=== PATIENT | male | born 1955 | race Two or more races ===

== ENCOUNTER 2021-08-16 11:52 | Inpatient (IN) | payer BC, OTHER ==
[~2021-08-16] VITALS: Ht 170.2 cm; Wt 85.3 kg
[2021-08-16 13:39] LABS: Basophils # (auto) 0.1 10 ^3/uL (0-0.2); Eosinophils # (auto) 0 10 ^3/uL (0-0.8); Monocytes # (auto) 0.5 10 ^3/uL (0-1.3); Neutrophils # (auto) 6.4 10 ^3/uL (1.6-8.6); Nucleated Red Blood Cells % 0.1 %
[2021-08-16 13:43] LABS: Basophils % (auto) 0.6 % (0.0-2.0); Eosinophils % (auto) 0.3 % (0.0-7.0); Hematocrit 20.3 % (41.0-53.0); Lymphocytes # (auto) 1.3 10 ^3/uL (0.4-5.4); Lymphocytes % (auto) 16.3 % (10.0-50.0); Mean Corpuscular Hemoglobin 17.5 pg (28.0-32.0); Mean Corpuscular Hgb Conc. 29.2 g/dL (32.0-36.0); Monocytes % (auto) 5.6 % (0.0-12.0); Neutrophils % (auto) 77.2 % (37.0-80.0); Red Blood Cells 3.38 10^6/uL (4.5-5.90); Red Cell Distribution Width 18.9 % (11.8-14.3); White Blood Cell 8.3 10^3/uL (4.4-10.8)
[2021-08-16 13:56] LABS: INR 1.1 (0.9-1.15); Partial Thromboplastin Time 24.8 sec (23.6-33.0)
[2021-08-16 13:58] LABS: Hemoglobin 5.9 g/dL (13.5-17.5)
[2021-08-16 14:02] LABS: Albumin 2.7 g/dL (3.4-5.0); Calcium 8.4 mg/dL (8.5-10.1); Potassium 3.6 mmol/L (3.5-5.1)
[2021-08-16 14:06] LABS: BUN/Creatinine Ratio 11.3; Bilirubin, Total 0.2 mg/dL (0.2-1.0); Total Protein 6.5 g/dL (6.4-8.2)
[2021-08-16 14:10] LABS: Urine Bacteria MOD /hpf (None Seen); Urine Blood Negative /uL (Negative); Urine Mucus FEW (None Seen); Urine Specific Gravity 1.019 (1.001-1.035); Urine WBC 88 /hpf (0 - 3)
[2021-08-16 16:25] VITALS: BP 120/55
[2021-08-16] MEDS ORDERED: NITROGLYCERIN 0.4 MG SL TAB SL PRN (16:30)
[2021-08-16] MEDS ORDERED: HYDROcodone-ACET 5/325MG TAB PO PRN (16:30)
[2021-08-16] MEDS ORDERED: MORPHINE SULFATE INJ 2 MG/ml SYRG IV PRN ×2 (16:30)
[2021-08-16] MEDS ORDERED: ONDANSETRON HCL 4 MG/2 ML VIAL IV PRN (16:30)
[2021-08-16 16:45] VITALS: BP 129/61
[2021-08-16 18:40] VITALS: BP 116/54
[2021-08-16 20:01] VITALS: BP 121/51
[2021-08-16 20:16] VITALS: BP 128/55
[2021-08-17] MEDS ORDERED: FURO40TA4 PO (01:11)
[2021-08-17] MEDS ORDERED: POTA10TA51 PO (01:11)
[2021-08-17 01:18] VITALS: BP 130/63
[2021-08-17 05:00] VITALS: BP 144/80
[2021-08-17] MEDS: ACETAMINOPHEN 325 MG TAB PO PRN ×2 (05:05→21:35)
[2021-08-17 06:00] LABS: Basophils # (auto) 0.1 10 ^3/uL (0-0.2); Basophils % (auto) 0.8 % (0.0-2.0); Hemoglobin 8.2 g/dL (13.5-17.5); Monocytes # (auto) 0.7 10 ^3/uL (0-1.3)
[2021-08-17 06:02] LABS: Eosinophils # (auto) 0.1 10 ^3/uL (0-0.8); Eosinophils % (auto) 1.6 % (0.0-7.0); Lymphocytes # (auto) 2.1 10 ^3/uL (0.4-5.4); Lymphocytes % (auto) 21.6 % (10.0-50.0); Mean Corpuscular Hemoglobin 20.5 pg (28.0-32.0); Mean Corpuscular Hgb Conc. 31.6 g/dL (32.0-36.0); Mean Corpuscular Volume 64.9 fL (80.0-100.0); Monocytes % (auto) 7.2 % (0.0-12.0); Neutrophils # (auto) 6.6 10 ^3/uL (1.6-8.6); Neutrophils % (auto) 68.8 % (37.0-80.0); Nucleated Red Blood Cells % 0.2 %; White Blood Cell 9.5 10^3/uL (4.4-10.8)
[2021-08-17 06:08] LABS: Albumin 2.7 g/dL (3.4-5.0); BUN/Creatinine Ratio 13.2; Calcium 8.7 mg/dL (8.5-10.1); Potassium 4.2 mmol/L (3.5-5.1)
[2021-08-17 06:11] LABS: Bilirubin, Total 0.2 mg/dL (0.2-1.0); Total Protein 6.3 g/dL (6.4-8.2)
[2021-08-17 06:15] LABS: Red Cell Distribution Width 23.7 % (11.8-14.3)
[2021-08-17 09:00] VITALS: BP 132/60
[2021-08-17] MEDS ORDERED: cefTRIAXone 1GM/50ML D5W 50 ML IV ONE (11:45)
[2021-08-17 13:00] VITALS: BP 123/59
[2021-08-17 17:00] VITALS: BP 134/62
[2021-08-17 22:00] VITALS: BP 123/64
[2021-08-18 05:00] VITALS: BP 113/60
[2021-08-18] MEDS: cefTRIAXone 1GM/50ML D5W 50 ML IV SCH (08:39)
[2021-08-18 09:00] VITALS: BP 129/59
[2021-08-18 12:52] LABS: Basophils # (auto) 0.1 10 ^3/uL (0-0.2); Eosinophils # (auto) 0.1 10 ^3/uL (0-0.8); Monocytes # (auto) 0.5 10 ^3/uL (0-1.3); Nucleated Red Blood Cells % 0.1 %
[2021-08-18 12:54] LABS: Basophils % (auto) 1.3 % (0.0-2.0); Eosinophils % (auto) 1.6 % (0.0-7.0); Hematocrit 27.4 % (41.0-53.0); Hemoglobin 8.3 g/dL (13.5-17.5); Lymphocytes # (auto) 1.6 10 ^3/uL (0.4-5.4); Mean Corpuscular Hgb Conc. 30.4 g/dL (32.0-36.0); Mean Corpuscular Volume 65.8 fL (80.0-100.0); Monocytes % (auto) 6.8 % (0.0-12.0); Neutrophils # (auto) 5.4 10 ^3/uL (1.6-8.6); Neutrophils % (auto) 69.3 % (37.0-80.0); Red Blood Cells 4.16 10^6/uL (4.5-5.90); White Blood Cell 7.8 10^3/uL (4.4-10.8)
[2021-08-18 12:57] LABS: Red Cell Distribution Width 24.1 % (11.8-14.3)
[2021-08-18 13:00] VITALS: BP 125/61
[2021-08-18 17:00] VITALS: BP 135/78
[2021-08-18 20:00] VITALS: BP 133/81
[2021-08-18 22:00] VITALS: BP 133/81
[2021-08-19 05:00] VITALS: BP 113/57
[2021-08-19 08:00] VITALS: BP 124/69
[2021-08-19 08:50] VITALS: BP 122/61
[2021-08-19] MEDS: cefTRIAXone 1GM/50ML D5W 50 ML IV SCH (09:04)
[2021-08-19 12:08] LABS: Basophils # (auto) 0.1 10 ^3/uL (0-0.2); Basophils % (auto) 1.4 % (0.0-2.0); Eosinophils # (auto) 0.1 10 ^3/uL (0-0.8); Hemoglobin 8.8 g/dL (13.5-17.5); Monocytes # (auto) 0.5 10 ^3/uL (0-1.3); Nucleated Red Blood Cells % 0.1 %
[2021-08-19 12:12] LABS: Eosinophils % (auto) 1.4 % (0.0-7.0); Hematocrit 28.9 % (41.0-53.0); Lymphocytes # (auto) 1.4 10 ^3/uL (0.4-5.4); Lymphocytes % (auto) 16.9 % (10.0-50.0); Mean Corpuscular Hemoglobin 19.8 pg (28.0-32.0); Mean Corpuscular Hgb Conc. 30.4 g/dL (32.0-36.0); Mean Corpuscular Volume 65.1 fL (80.0-100.0); Neutrophils # (auto) 6.3 10 ^3/uL (1.6-8.6); Neutrophils % (auto) 74.3 % (37.0-80.0); Red Blood Cells 4.45 10^6/uL (4.5-5.90); White Blood Cell 8.4 10^3/uL (4.4-10.8)
[2021-08-19 12:26] LABS: BUN/Creatinine Ratio 17.2; Calcium 8.5 mg/dL (8.5-10.1); Potassium 4.1 mmol/L (3.5-5.1)
[2021-08-19 13:04] VITALS: BP 124/69
[2021-08-19 16:34] VITALS: BP 131/61
[2021-08-19 22:00] VITALS: BP 127/74
[2021-08-20 05:00] VITALS: BP 119/64
[2021-08-20] MEDS: ACETAMINOPHEN 325 MG TAB PO PRN (06:23)
[2021-08-20 06:29] LABS: Basophils # (auto) 0.1 10 ^3/uL (0-0.2); Mean Corpuscular Volume 65.1 fL (80.0-100.0)
[2021-08-20 06:32] LABS: Basophils % (auto) 1.1 % (0.0-2.0); Eosinophils # (auto) 0.2 10 ^3/uL (0-0.8); Hematocrit 28.2 % (41.0-53.0); Hemoglobin 8.7 g/dL (13.5-17.5); Lymphocytes # (auto) 1.7 10 ^3/uL (0.4-5.4); Lymphocytes % (auto) 18.8 % (10.0-50.0); Mean Corpuscular Hemoglobin 20.1 pg (28.0-32.0); Mean Corpuscular Hgb Conc. 30.8 g/dL (32.0-36.0); Monocytes # (auto) 0.6 10 ^3/uL (0-1.3); Monocytes % (auto) 6.8 % (0.0-12.0); Neutrophils # (auto) 6.4 10 ^3/uL (1.6-8.6); Neutrophils % (auto) 71.3 % (37.0-80.0); Red Blood Cells 4.33 10^6/uL (4.5-5.90)
[2021-08-20 06:34] LABS: Red Cell Distribution Width 24.8 % (11.8-14.3)
[2021-08-20 06:47] LABS: Potassium 4.1 mmol/L (3.5-5.1)
[2021-08-20 06:53] LABS: Albumin 2.9 g/dL (3.4-5.0); BUN/Creatinine Ratio 15.1; Bilirubin, Total 0.2 mg/dL (0.2-1.0); CRP High Sensitivity 0.37 mg/dL (< 0.3); Calcium 8.6 mg/dL (8.5-10.1); Pre Albumin 27.2 mg/dL (20.0-40.0); Total Protein 6.8 g/dL (6.4-8.2)
[2021-08-20 06:55] LABS: % Iron Saturation 3.2 % (20-55)
[2021-08-20 06:58] LABS: Thyroid Stimulating Hormone 3.09 uIU/mL (0.358-3.74)
[2021-08-20 09:00] VITALS: BP 138/67
[2021-08-20] MEDS ORDERED: GOLYTELY 4L KIT PO ONE (09:00)
[2021-08-20] MEDS: cefTRIAXone 1GM/50ML D5W 50 ML IV SCH (09:10)
[2021-08-20 09:11] LABS: Ferritin 4.1 ng/mL (10-322)
[2021-08-20 13:00] VITALS: BP 131/74
[2021-08-20 16:57] VITALS: BP 149/75
[2021-08-20 22:00] VITALS: BP 112/62
[2021-08-21 05:00] VITALS: BP 137/60
[2021-08-21 08:30] VITALS: BP 134/69
[2021-08-21] MEDS: cefTRIAXone 1GM/50ML D5W 50 ML IV SCH (08:43)
[2021-08-21 09:04] LABS: Free T4 (Free Thyroxine) 1.24 ng/dL (0.89-1.76)
[2021-08-21 09:17] VITALS: BP 134/69
[2021-08-21 09:59] LABS: Folate (Folic Acid) 12.56 ng/mL (5.38-24)
[2021-08-21 10:24] LABS: Basophils # (auto) 0.1 10 ^3/uL (0-0.2); Eosinophils # (auto) 0.1 10 ^3/uL (0-0.8); Lymphocytes # (auto) 1.8 10 ^3/uL (0.4-5.4); Monocytes # (auto) 0.6 10 ^3/uL (0-1.3); Neutrophils % (auto) 70.8 % (37.0-80.0)
[2021-08-21 10:26] LABS: Eosinophils % (auto) 1.1 % (0.0-7.0); Hematocrit 25.1 % (41.0-53.0); Hemoglobin 7.8 g/dL (13.5-17.5); Lymphocytes % (auto) 20.1 % (10.0-50.0); Mean Corpuscular Hemoglobin 19.9 pg (28.0-32.0); Mean Corpuscular Volume 64.1 fL (80.0-100.0); Neutrophils # (auto) 6.2 10 ^3/uL (1.6-8.6); Nucleated Red Blood Cells % 0.1 %; Red Blood Cells 3.92 10^6/uL (4.5-5.90); Red Cell Distribution Width 24.8 % (11.8-14.3); White Blood Cell 8.7 10^3/uL (4.4-10.8)
[2021-08-21 10:41] LABS: INR 1.08 (0.9-1.15); Partial Thromboplastin Time 24.7 sec (23.6-33.0)
[2021-08-21 10:55] LABS: Albumin 2.7 g/dL (3.4-5.0); Calcium 8.2 mg/dL (8.5-10.1); Potassium 3.3 mmol/L (3.5-5.1)
[2021-08-21 10:58] LABS: BUN/Creatinine Ratio 12.2; Bilirubin, Total 0.2 mg/dL (0.2-1.0); Total Protein 6.4 g/dL (6.4-8.2)
[2021-08-21] MEDS ORDERED: LIDOCAINE VISCOUS 2% 15ML UD ONE (12:44)
[2021-08-21] MEDS ORDERED: diphenhdrAMINE HCL 50 MG/1 ML VL ONE (12:44)
[2021-08-21 12:47] VITALS: BP 132/66
[2021-08-21] MEDS: MIDAZOLAM HCL 5 MG/ML-1ML VIAL ONE ×4 (13:44→13:57)
[2021-08-21] MEDS: fentaNYL CITRATE 100 MCG/2 ML VL ONE ×3 (13:44→13:55)
[2021-08-21] MEDS ORDERED: fentaNYL CITRATE 100 MCG/2 ML VL ONE (14:01)
[2021-08-21] MEDS ORDERED: OMNIPAQUE ORAL SOLN 500ml 12mg/ml PO ONE (15:18)
[2021-08-21] MEDS ORDERED: IOHEXOL 300 MG/ML 100ML BOTTLE IJ ONE (17:09)
[2021-08-21 17:17] VITALS: BP 123/65
[2021-08-21] MEDS ORDERED: AMINO ACID INFUSION IN D10W 1,000 ML IV NR (20:00)
[2021-08-21 22:00] VITALS: BP 119/64
[2021-08-21] MEDS: PANTOPRAZOLE 40 MG/10 ML VIAL INJ IV SCH (22:26)
[2021-08-21] MEDS: ACCU-CHEK COMFORT CURVE STRIP VI SCH (22:58)
[2021-08-21] MEDS: InsuLIN REG 1unit/0.01ml Soln (100units/ml) SC SCH (23:04)
[2021-08-22] MEDS ORDERED: DEXTROSE (50%) 50ML SYRG IV SCH
[2021-08-22] MEDS: ACETAMINOPHEN 325 MG TAB PO PRN ×2 (03:25→04:07)
[2021-08-22 05:00] VITALS: BP 120/72
[2021-08-22] MEDS: InsuLIN REG 1unit/0.01ml Soln (100units/ml) SC SCH ×2 (06:00→12:00)
[2021-08-22] MEDS: ACCU-CHEK COMFORT CURVE STRIP VI SCH ×2 (06:24→12:11)
[2021-08-22 08:16] LABS: Hematocrit 25.7 % (41.0-53.0)
[2021-08-22 08:28] LABS: Magnesium 2.4 mg/dL (1.6-2.6); Potassium 3.6 mmol/L (3.5-5.1)
[2021-08-22 08:37] LABS: Albumin 2.8 g/dL (3.4-5.0); BUN/Creatinine Ratio 9.7; Bilirubin, Total 0.2 mg/dL (0.2-1.0); Calcium 8.4 mg/dL (8.5-10.1); Phosphorus 2.8 mg/dL (2.5-4.90); Total Protein 6.4 g/dL (6.4-8.2)
[2021-08-22 09:00] VITALS: BP 127/61
[2021-08-22] MEDS ORDERED: TPN PER PHARMACY 0 ML IV SCH (09:45)
[2021-08-22] MEDS ORDERED: ASCORBIC ACID 500 MG TAB PO SCH (10:00)
[2021-08-22] MEDS ORDERED: FERROUS SULFATE 325mg EC TAB PO SCH (10:00)
[2021-08-22] MEDS ORDERED: levoFLOXacin 500 MG TAB PO SCH (10:00)
[2021-08-22] MEDS: PANTOPRAZOLE 40 MG/10 ML VIAL INJ IV SCH (10:28)
[2021-08-22 13:00] VITALS: BP 127/64
[2021-08-22] MEDS ORDERED: metroNIDAZOLE 500 MG TAB PO SCH (14:00)
[2021-08-22] MEDS ORDERED: LEVO-28 PO (15:53)
[2021-08-22] MEDS ORDERED: FER325T PO (15:53)
[2021-08-22] MEDS ORDERED: MET500T PO (15:53)
[2021-08-22] MEDS ORDERED: PANT40T PO (15:53)
[2021-08-22] MEDS ORDERED: ASCO500T11 PO (15:53)
[2021-08-22 16:48] VITALS: BP 147/70
[2021-08-22 18:22] VITALS: BP 147/70
[2021-08-22] MEDS ORDERED: PPN PER PHARMACY IV NR ×7 (20:00)
== END 2021-08-22 19:30 | disposition home or self-care (01) | DRG 812 ==
LOC: ER 11:52 → TELE 16:24 → TELE-WESTW 22:32
PROVIDERS: ADMIT Internal Medicine; ATTEND Hospitalist
PROC: 30233N1 Transfusion of Nonautologous Red Blood Cells into Peripheral Vein, Percutaneous Approach (ICD-10-PCS; principal; 2021-08-16)
PROC: 0DBE8ZX Excision of Large Intestine, Via Natural or Artificial Opening Endoscopic, Diagnostic (ICD-10-PCS; 2021-08-21)
PROC: 0DB68ZX Excision of Stomach, Via Natural or Artificial Opening Endoscopic, Diagnostic (ICD-10-PCS; 2021-08-21 13:38)
DX: D64.9 Anemia, unspecified (principal); N39.0 Urinary tract infection, site not specified; I48.20 Chronic atrial fibrillation, unspecified; K57.32 Diverticulitis of large intestine without perforation or abscess without bleeding; K29.70 Gastritis, unspecified, without bleeding; I48.0 Paroxysmal atrial fibrillation; E88.09 Other disorders of plasma-protein metabolism, not elsewhere classified; I10 Essential (primary) hypertension; Z20.822 Contact with and (suspected) exposure to COVID-19; R53.83 Other fatigue; K44.9 Diaphragmatic hernia without obstruction or gangrene; Z79.01 Long term (current) use of anticoagulants; Z82.5 Family history of asthma and other chronic lower respiratory diseases; Z83.3 Family history of diabetes mellitus; Z87.440 Personal history of urinary (tract) infections
CPT/HCPCS: 36415; 36430; 43239; 45380; 71045; 74177; 80048; 80053; 81001; 82040; 82270; 82378; 82607; 82668; 82728; 82746; 82962; 83010; 83540; 83550; 83615; 83735; 84100; 84439; 84443; 84478; 84484; 85014; 85018; 85025; 85045; 85610; 85652; 85730; 86141; 86431; 86850; 86880; 86900; 86901; 86920; 93005; 93306; C9113; G0378; J0696; J2250; J2405

== ENCOUNTER 2021-10-31 21:05 | Inpatient (IN) | payer BC ==
[~2021-10-31] VITALS: Ht 170.2 cm; Wt 76.9 kg
[~2021-10-31 21:05] MED LIST: ASCO500T11 PO; FER325T PO; FURO40TA4 PO; LEVO-28 PO; MET500T PO; PANT40T PO; POTA10TA51 PO
[2021-11-01 00:53] LABS: Red Blood Cells 5.23 10^6/uL (4.5-5.90)
[2021-11-01 00:54] LABS: Hematocrit 41.7 % (41.0-53.0); Hemoglobin 13.2 g/dL (13.5-17.5); Mean Corpuscular Hemoglobin 25.3 pg (28.0-32.0); Mean Corpuscular Hgb Conc. 31.7 g/dL (32.0-36.0); Mean Corpuscular Volume 79.8 fL (80.0-100.0); White Blood Cell 25.7 10^3/uL (4.4-10.8)
[2021-11-01 00:55] LABS: Red Cell Distribution Width 24.7 % (11.8-14.3)
[2021-11-01 00:56] LABS: Basophils % (manual) 0 (0.0-2.0); Blast Cells 0; Eosinophils % (manual) 0 (0-7); Metamyelocytes % 0; Myelocytes % 0; Promyelocytes % 0; Reactive Lymphocytes 0
[2021-11-01 01:14] LABS: Potassium 4.2 mmol/L (3.5-5.1)
[2021-11-01 01:16] LABS: BUN/Creatinine Ratio 11.6
[2021-11-01 01:19] LABS: Bilirubin, Total 0.5 mg/dL (0.2-1.0); Total Protein 7.6 g/dL (6.4-8.2)
[2021-11-01 01:34] LABS: Band Neutrophils % (manual) 2; Lymphocytes % (manual) 6 (10.0-50.0); Monocytes % (manual) 4 (0-12)
[2021-11-01] MEDS ORDERED: diazePAM 5 MG TAB PO ONE (02:30)
[2021-11-01] MEDS ORDERED: metroNIDAZOLE 500MG/100ML 100 ML IV ONE (07:15)
[2021-11-01] MEDS ORDERED: CIPROFLOXACIN HCL 500 MG TAB PO ONE (07:30)
[2021-11-01] MEDS ORDERED: SODIUM CHLORIDE 0.9% 500 ML IV ONE (07:30)
[2021-11-01] MEDS ORDERED: ONDANSETRON HCL 4 MG/2 ML VIAL IV ONE (08:45)
[2021-11-01] MEDS ORDERED: MORPHINE SULFATE INJ 2 MG/ml SYRG IV PRN (10:45)
[2021-11-01] MEDS ORDERED: NITROGLYCERIN 0.4 MG SL TAB SL PRN (10:45)
[2021-11-01] MEDS: MORPHINE SULFATE INJ 2 MG/ml SYRG IV PRN ×2 (11:10→21:03)
[2021-11-01] MEDS: ONDANSETRON HCL 4 MG/2 ML VIAL IV PRN ×2 (11:11→21:02)
[2021-11-01] MEDS: metroNIDAZOLE 500MG/100ML 100 ML IV SCH ×2 (14:10→21:26)
[2021-11-01 16:32] VITALS: BP_SYST 117; BP_SYST 120; BP_DIAS 66
[2021-11-01 16:52] VITALS: BP 121/67
[2021-11-01 20:00] VITALS: BP 114/62
[2021-11-01 22:00] VITALS: BP 114/62
[2021-11-02 05:00] VITALS: BP 122/64
[2021-11-02] MEDS: metroNIDAZOLE 500MG/100ML 100 ML IV SCH ×3 (05:35→21:29)
[2021-11-02] MEDS: MORPHINE SULFATE INJ 2 MG/ml SYRG IV PRN ×3 (05:40→21:34)
[2021-11-02] MEDS: ONDANSETRON HCL 4 MG/2 ML VIAL IV PRN (05:41)
[2021-11-02 06:01] LABS: Hematocrit 37.6 % (41.0-53.0); Hemoglobin 11.6 g/dL (13.5-17.5); Mean Corpuscular Hemoglobin 24.7 pg (28.0-32.0); Mean Corpuscular Hgb Conc. 30.9 g/dL (32.0-36.0); Mean Corpuscular Volume 79.9 fL (80.0-100.0); White Blood Cell 26.6 10^3/uL (4.4-10.8)
[2021-11-02 06:16] LABS: Red Cell Distribution Width 24.3 % (11.8-14.3)
[2021-11-02 06:17] LABS: Basophils % (manual) 0 (0.0-2.0); Blast Cells 0; Eosinophils % (manual) 0 (0-7); Metamyelocytes % 0; Myelocytes % 0; Promyelocytes % 0; Reactive Lymphocytes 0
[2021-11-02 07:23] LABS: Band Neutrophils % (manual) 8; Lymphocytes % (manual) 2 (10.0-50.0); Monocytes % (manual) 6 (0-12)
[2021-11-02] MEDS: cefTRIAXone 1GM/50ML D5W 50 ML IV SCH (08:28)
[2021-11-02 09:12] VITALS: BP 129/67
[2021-11-02] MEDS: FAMOTIDINE (10MG/ML) 2ML VL IV SCH (10:16)
[2021-11-02 11:46] VITALS: BP_SYST 129; BP_SYST 130; BP_DIAS 67; BP_DIAS 82
[2021-11-02] MEDS: sulfaSALAzine 500 MG TAB PO SCH ×3 (13:07→22:29)
[2021-11-02] MEDS: D5W/SOD CHL 0.45% 1,000 ML IV SCH (13:07)
[2021-11-02 15:45] LABS: Urine Bacteria NONE SEEN /hpf (None Seen); Urine Blood TRACE /uL (Negative); Urine Budding Yeast FEW /hpf (None Seen); Urine Mucus FEW (None Seen); Urine Specific Gravity 1.031 (1.001-1.035); Urine WBC 91 /hpf (0 - 3)
[2021-11-02 16:14] VITALS: BP 146/65
[2021-11-02 20:00] VITALS: BP 121/57
[2021-11-02 22:00] VITALS: BP 121/57
[2021-11-03] VITALS (7 sets, daily range): BP systolic 119–128; BP diastolic 51–72
[2021-11-03] MEDS: D5W/SOD CHL 0.45% 1,000 ML IV SCH ×2 (01:05→14:25)
[2021-11-03] MEDS: MORPHINE SULFATE INJ 2 MG/ml SYRG IV PRN ×2 (04:07→23:50)
[2021-11-03] MEDS: metroNIDAZOLE 500MG/100ML 100 ML IV SCH ×3 (05:37→21:24)
[2021-11-03 07:37] LABS: Basophils # (auto) 0.1 10 ^3/uL (0-0.2); Basophils % (auto) 0.5 % (0.0-2.0); Eosinophils # (auto) 0 10 ^3/uL (0-0.8); Hemoglobin 11.1 g/dL (13.5-17.5); Lymphocytes # (auto) 0.9 10 ^3/uL (0.4-5.4); Mean Corpuscular Hemoglobin 25.5 pg (28.0-32.0); Mean Corpuscular Hgb Conc. 31.8 g/dL (32.0-36.0); Mean Corpuscular Volume 80.2 fL (80.0-100.0); Monocytes % (auto) 5.5 % (0.0-12.0); Neutrophils # (auto) 16.2 10 ^3/uL (1.6-8.6); Red Blood Cells 4.36 10^6/uL (4.5-5.90); Red Cell Distribution Width 23.2 % (11.8-14.3); White Blood Cell 18.2 10^3/uL (4.4-10.8)
[2021-11-03] MEDS ORDERED: ENOXAPARIN SOD 40 MG/0.4 ML SYRINGE SC SCH (10:00)
[2021-11-03] MEDS: cefTRIAXone 1GM/50ML D5W 50 ML IV SCH (11:15)
[2021-11-03] MEDS: sulfaSALAzine 500 MG TAB PO SCH ×4 (11:15→21:24)
[2021-11-03] MEDS: FAMOTIDINE (10MG/ML) 2ML VL IV SCH (11:16)
[2021-11-03] MEDS: chlorproMAZINE INECTION 25 MG in SODIUM CHL 0.9% 50 ML IV SCH (21:23)
[2021-11-04] VITALS (7 sets, daily range): BP systolic 116–143; BP diastolic 63–69
[2021-11-04] MEDS: D5W/SOD CHL 0.45% 1,000 ML IV SCH ×2 (01:25→17:05)
[2021-11-04] MEDS: chlorproMAZINE INECTION 25 MG in SODIUM CHL 0.9% 50 ML IV SCH ×2 (01:51→05:16)
[2021-11-04] MEDS: metroNIDAZOLE 500MG/100ML 100 ML IV SCH ×3 (05:16→22:00)
[2021-11-04 06:16] LABS: Basophils # (auto) 0 10 ^3/uL (0-0.2); Basophils % (auto) 0.2 % (0.0-2.0); Eosinophils # (auto) 0 10 ^3/uL (0-0.8); Red Cell Distribution Width 23.5 % (11.8-14.3); White Blood Cell 12.5 10^3/uL (4.4-10.8)
[2021-11-04 06:19] LABS: Eosinophils % (auto) 0.2 % (0.0-7.0); Hematocrit 35.5 % (41.0-53.0); Mean Corpuscular Hemoglobin 24.8 pg (28.0-32.0); Mean Corpuscular Hgb Conc. 31.1 g/dL (32.0-36.0); Mean Corpuscular Volume 79.7 fL (80.0-100.0); Monocytes # (auto) 0.7 10 ^3/uL (0-1.3); Neutrophils # (auto) 10.7 10 ^3/uL (1.6-8.6); Neutrophils % (auto) 85.6 % (37.0-80.0); Red Blood Cells 4.45 10^6/uL (4.5-5.90)
[2021-11-04 06:27] LABS: Albumin 2.2 g/dL (3.4-5.0); BUN/Creatinine Ratio 18.5; Calcium 8.2 mg/dL (8.5-10.1); Phosphorus 2.6 mg/dL (2.5-4.90); Potassium 3.2 mmol/L (3.5-5.1)
[2021-11-04] MEDS: sulfaSALAzine 500 MG TAB PO SCH ×3 (09:00→18:00)
[2021-11-04] MEDS: cefTRIAXone 1GM/50ML D5W 50 ML IV SCH (10:25)
[2021-11-04] MEDS: FAMOTIDINE (10MG/ML) 2ML VL IV SCH (10:26)
[2021-11-04] MEDS ORDERED: POTASSIUM CHLORIDE 40 MEQ, LIDOCAINE 1% (LOCAL ANESTH.) 4 ML in SODIUM CHL 0.9% 250 ML IV ONE (18:00)
[2021-11-04] MEDS ORDERED: TPN PER PHARMACY 0 ML IV SCH (18:15)
[2021-11-04] MEDS: chlorproMAZINE INECTION 25 MG in SODIUM CHL 0.9% 50 ML IV PRN (18:28)
[2021-11-04] MEDS: AMINO ACID INFUSION IN D10W 1,000 ML IV NR (20:00)
[2021-11-04] MEDS: ACCU-CHEK COMFORT CURVE STRIP VI SCH (23:25)
[2021-11-04] MEDS: InsuLIN REG 1unit/0.01ml Soln (100units/ml) SC SCH (23:26)
[2021-11-05] MEDS ORDERED: DEXTROSE (50%) 50ML SYRG IV SCH
[2021-11-05 04:55] VITALS: BP 137/56
[2021-11-05 05:40] LABS: Basophils # (auto) 0 10 ^3/uL (0-0.2); Basophils % (auto) 0.2 % (0.0-2.0); Eosinophils # (auto) 0 10 ^3/uL (0-0.8); Eosinophils % (auto) 0.3 % (0.0-7.0); Hematocrit 36.6 % (41.0-53.0); Hemoglobin 11.8 g/dL (13.5-17.5); Lymphocytes # (auto) 1.2 10 ^3/uL (0.4-5.4); Lymphocytes % (auto) 8.3 % (10.0-50.0); Mean Corpuscular Hemoglobin 25.6 pg (28.0-32.0); Mean Corpuscular Hgb Conc. 32.2 g/dL (32.0-36.0); Mean Corpuscular Volume 79.5 fL (80.0-100.0); Monocytes # (auto) 0.9 10 ^3/uL (0-1.3); Neutrophils # (auto) 12.2 10 ^3/uL (1.6-8.6); Neutrophils % (auto) 85.2 % (37.0-80.0); White Blood Cell 14.3 10^3/uL (4.4-10.8)
[2021-11-05 05:43] LABS: Red Cell Distribution Width 23.9 % (11.8-14.3)
[2021-11-05 05:45] LABS: INR 1.25 (0.9-1.15); Partial Thromboplastin Time 28.6 sec (24.6-33.4)
[2021-11-05] MEDS: InsuLIN REG 1unit/0.01ml Soln (100units/ml) SC SCH ×5 (06:00→23:46)
[2021-11-05] MEDS: ACCU-CHEK COMFORT CURVE STRIP VI SCH ×4 (06:10→23:45)
[2021-11-05] MEDS: metroNIDAZOLE 500MG/100ML 100 ML IV SCH ×3 (06:10→23:03)
[2021-11-05] MEDS: D5W/SOD CHL 0.45% 1,000 ML IV SCH ×2 (06:37→19:45)
[2021-11-05 06:42] LABS: Potassium 3.4 mmol/L (3.5-5.1)
[2021-11-05 06:49] LABS: BUN/Creatinine Ratio 15.7
[2021-11-05 06:50] LABS: Albumin 2.2 g/dL (3.4-5.0); Bilirubin, Total 0.2 mg/dL (0.2-1.0); Calcium 8.4 mg/dL (8.5-10.1); Phosphorus 2.3 mg/dL (2.5-4.90); Total Protein 6.1 g/dL (6.4-8.2)
[2021-11-05 06:51] LABS: Magnesium 2.3 mg/dL (1.6-2.6)
[2021-11-05 09:00] VITALS: BP 128/71
[2021-11-05] MEDS: cefTRIAXone 1GM/50ML D5W 50 ML IV SCH (09:17)
[2021-11-05] MEDS: FAMOTIDINE (10MG/ML) 2ML VL IV SCH (09:25)
[2021-11-05 13:00] VITALS: BP 146/64
[2021-11-05] MEDS ORDERED: OMNIPAQUE ORAL SOLN 500ml 12mg/ml PO ONE (16:30)
[2021-11-05] MEDS ORDERED: IOHEXOL 300 MG/ML 100ML BOTTLE IJ ONE (16:30)
[2021-11-05] MEDS ORDERED: POTASSIUM PHOSPHATE 22 MEQ in SODIUM CHL 0.9% 100 ML IV ONE (17:00)
[2021-11-05 17:02] VITALS: BP 132/73
[2021-11-05] MEDS ORDERED: LIDOCAINE 1% (LOCAL ANESTH.) PF 5ml SDV ID ONE (18:45)
[2021-11-05] MEDS: AMINO ACID INFUSION IN D10W 1,000 ML IV NR ×2 (19:40→19:41)
[2021-11-05] MEDS: MORPHINE SULFATE INJ 2 MG/ml SYRG IV PRN (21:13)
[2021-11-05 22:00] VITALS: BP 131/77
[2021-11-05] MEDS: SODIUM CHLOR 0.9% PF (SALINE LOCK) 10ML VIAL/SYR IV SCH (22:04)
[2021-11-05] MEDS: chlorproMAZINE INECTION 25 MG in SODIUM CHL 0.9% 50 ML IV PRN (22:34)
[2021-11-06 05:00] VITALS: BP 138/73
[2021-11-06] MEDS: ACCU-CHEK COMFORT CURVE STRIP VI SCH ×3 (05:35→18:11)
[2021-11-06] MEDS: InsuLIN REG 1unit/0.01ml Soln (100units/ml) SC SCH ×3 (05:39→18:15)
[2021-11-06 05:53] LABS: Albumin 2.3 g/dL (3.4-5.0); BUN/Creatinine Ratio 16.9; Calcium 8.4 mg/dL (8.5-10.1); Magnesium 2.3 mg/dL (1.6-2.6); Potassium 3.2 mmol/L (3.5-5.1)
[2021-11-06 05:56] LABS: Bilirubin, Total 0.2 mg/dL (0.2-1.0); Phosphorus 2.1 mg/dL (2.5-4.90); Total Protein 6.3 g/dL (6.4-8.2)
[2021-11-06] MEDS: metroNIDAZOLE 500MG/100ML 100 ML IV SCH (06:06)
[2021-11-06] MEDS: ONDANSETRON HCL 4 MG/2 ML VIAL IV PRN (06:45)
[2021-11-06 07:30] VITALS: BP 126/60
[2021-11-06 09:00] VITALS: BP 136/75
[2021-11-06] MEDS ORDERED: POTASSIUM PHOSPHATE 44 MEQ in D5W 5% 250 ML IV ONE (11:30)
[2021-11-06] MEDS: FAMOTIDINE (10MG/ML) 2ML VL IV SCH (11:42)
[2021-11-06] MEDS: D5W/SOD CHL 0.45% 1,000 ML IV SCH ×2 (11:43→22:54)
[2021-11-06] MEDS: chlorproMAZINE INECTION 25 MG in SODIUM CHL 0.9% 50 ML IV PRN (11:43)
[2021-11-06] MEDS: cefTRIAXone 1GM/50ML D5W 50 ML IV SCH (11:43)
[2021-11-06] MEDS: SODIUM CHLOR 0.9% PF (SALINE LOCK) 10ML VIAL/SYR IV SCH ×2 (11:47→22:00)
[2021-11-06 13:00] VITALS: BP 126/60
[2021-11-06] MEDS: PIPERACILLIN-TAZOB 3.375GM 100 ML IV SCH ×2 (13:25→20:16)
[2021-11-06 17:00] VITALS: BP 123/75
[2021-11-06] MEDS: AMINO ACID INFUSION IN D10W 1,000 ML IV NR (19:49)
[2021-11-06] MEDS ORDERED: PPN PER PHARMACY IV NR ×10 (20:00)
[2021-11-06] MEDS ORDERED: TPN PER PHARMACY IV NR ×10 (20:00)
[2021-11-06 22:06] VITALS: BP 122/77
[2021-11-06] MEDS ORDERED: HEPARIN SODIUM (PORCINE) 5000 UNITS/ML 1ML VIAL IV ONE (22:15)
[2021-11-06] MEDS ORDERED: HEPARIN DRIP/D5W 100UNITS/ML 250 ML IV SCH (22:15)
[2021-11-07 00:01] LABS: Hemoglobin 11.4 g/dL (13.5-17.5); Mean Corpuscular Hgb Conc. 31.8 g/dL (32.0-36.0); White Blood Cell 17.4 10^3/uL (4.4-10.8)
[2021-11-07 00:02] LABS: Basophils # (auto) 0 10 ^3/uL (0-0.2); Basophils % (auto) 0.1 % (0.0-2.0); Eosinophils # (auto) 0.4 10 ^3/uL (0-0.8); Eosinophils % (auto) 2.3 % (0.0-7.0); Hematocrit 35.9 % (41.0-53.0); Lymphocytes # (auto) 1.6 10 ^3/uL (0.4-5.4); Lymphocytes % (auto) 9.2 % (10.0-50.0); Mean Corpuscular Hemoglobin 25.3 pg (28.0-32.0); Mean Corpuscular Volume 79.5 fL (80.0-100.0); Monocytes # (auto) 1.1 10 ^3/uL (0-1.3); Monocytes % (auto) 6.3 % (0.0-12.0); Neutrophils # (auto) 14.2 10 ^3/uL (1.6-8.6); Neutrophils % (auto) 82.1 % (37.0-80.0); Red Blood Cells 4.52 10^6/uL (4.5-5.90)
[2021-11-07 00:04] LABS: Red Cell Distribution Width 22.5 % (11.8-14.3)
[2021-11-07 00:15] LABS: INR 1.24 (0.9-1.15); Partial Thromboplastin Time 27.5 sec (24.6-33.4)
[2021-11-07] MEDS: PIPERACILLIN-TAZOB 3.375GM 100 ML IV SCH ×4 (01:04→18:12)
[2021-11-07 04:47] VITALS: BP 115/54
[2021-11-07 05:51] LABS: Albumin 2.1 g/dL (3.4-5.0); Calcium 7.8 mg/dL (8.5-10.1); Magnesium 2.1 mg/dL (1.6-2.6)
[2021-11-07 05:56] LABS: BUN/Creatinine Ratio 16.2; Bilirubin, Total 0.3 mg/dL (0.2-1.0); Phosphorus 3.7 mg/dL (2.5-4.90)
[2021-11-07] MEDS: ACCU-CHEK COMFORT CURVE STRIP VI SCH ×5 (06:00→23:58)
[2021-11-07] MEDS: InsuLIN REG 1unit/0.01ml Soln (100units/ml) SC SCH ×5 (06:36→23:58)
[2021-11-07 08:10] LABS: INR 1.23 (0.9-1.15); Partial Thromboplastin Time 27.7 sec (24.6-33.4)
[2021-11-07 09:00] VITALS: BP 117/58
[2021-11-07] MEDS: SODIUM CHLOR 0.9% PF (SALINE LOCK) 10ML VIAL/SYR IV SCH ×2 (09:01→21:54)
[2021-11-07] MEDS: FAMOTIDINE (10MG/ML) 2ML VL IV SCH (09:01)
[2021-11-07 09:26] LABS: Basophils # (auto) 0.1 10 ^3/uL (0-0.2); Lymphocytes % (auto) 9.7 % (10.0-50.0); Mean Corpuscular Volume 79.8 fL (80.0-100.0); Red Cell Distribution Width 23.3 % (11.8-14.3)
[2021-11-07 09:28] LABS: Basophils % (auto) 0.7 % (0.0-2.0); Eosinophils # (auto) 0.4 10 ^3/uL (0-0.8); Eosinophils % (auto) 2.8 % (0.0-7.0); Hematocrit 36.7 % (41.0-53.0); Hemoglobin 11.4 g/dL (13.5-17.5); Lymphocytes # (auto) 1.3 10 ^3/uL (0.4-5.4); Mean Corpuscular Hemoglobin 24.8 pg (28.0-32.0); Mean Corpuscular Hgb Conc. 31.1 g/dL (32.0-36.0); Monocytes # (auto) 0.9 10 ^3/uL (0-1.3); Monocytes % (auto) 6.7 % (0.0-12.0); Neutrophils # (auto) 11.1 10 ^3/uL (1.6-8.6); Neutrophils % (auto) 80.1 % (37.0-80.0); White Blood Cell 13.9 10^3/uL (4.4-10.8)
[2021-11-07] MEDS: POTASSIUM CHL 20MEQ/100ML 100 ML IV SCH ×3 (10:12→14:13)
[2021-11-07] MEDS ORDERED: HEPARIN DRIP/D5W 100UNITS/ML 250 ML IV SCH (10:15)
[2021-11-07] MEDS ORDERED: HEPARIN SODIUM (PORCINE) 5000 UNITS/ML 1ML VIAL IV ONE (10:15)
[2021-11-07] MEDS: D5W/SOD CHL 0.45% 1,000 ML IV SCH (11:39)
[2021-11-07 13:00] VITALS: BP 97/51
[2021-11-07] MEDS: chlorproMAZINE INECTION 25 MG in SODIUM CHL 0.9% 50 ML IV PRN (16:55)
[2021-11-07 17:00] VITALS: BP 101/60
[2021-11-07 19:53] LABS: INR 1.18 (0.9-1.15)
[2021-11-07] MEDS ORDERED: TPN PER PHARMACY IV NR ×12 (20:00)
[2021-11-07 22:00] VITALS: BP 112/66
[2021-11-08] MEDS: PIPERACILLIN-TAZOB 3.375GM 100 ML IV SCH ×4 (01:21→18:04)
[2021-11-08] MEDS: D5W/SOD CHL 0.45% 1,000 ML IV SCH ×2 (01:21→13:24)
[2021-11-08 05:00] VITALS: BP 124/62
[2021-11-08] MEDS: ACCU-CHEK COMFORT CURVE STRIP VI SCH ×4 (06:00→23:31)
[2021-11-08] MEDS: InsuLIN REG 1unit/0.01ml Soln (100units/ml) SC SCH ×4 (06:42→23:32)
[2021-11-08 09:00] VITALS: BP 143/70
[2021-11-08] MEDS: FAMOTIDINE (10MG/ML) 2ML VL IV SCH (10:05)
[2021-11-08] MEDS: SODIUM CHLOR 0.9% PF (SALINE LOCK) 10ML VIAL/SYR IV SCH ×2 (10:21→22:44)
[2021-11-08 10:29] LABS: Albumin 2.1 g/dL (3.4-5.0); Calcium 7.9 mg/dL (8.5-10.1); Magnesium 2.5 mg/dL (1.6-2.6); Potassium 3.5 mmol/L (3.5-5.1)
[2021-11-08 10:33] LABS: BUN/Creatinine Ratio 15.4; Bilirubin, Total 0.2 mg/dL (0.2-1.0); Phosphorus 2.3 mg/dL (2.5-4.90)
[2021-11-08] MEDS ORDERED: POTASSIUM PHOSPHATE 26.4 MEQ in SODIUM CHL 0.9% 100 ML IV ONE (12:15)
[2021-11-08 13:00] VITALS: BP 121/72
[2021-11-08] MEDS ORDERED: ASPirin 81 mg TAB PO ONE (13:00)
[2021-11-08] MEDS ORDERED: ENOXAPARIN SOD 40 MG/0.4 ML SYRINGE SC ONE (13:00)
[2021-11-08] MEDS: chlorproMAZINE INECTION 25 MG in SODIUM CHL 0.9% 50 ML IV PRN (13:25)
[2021-11-08 17:00] VITALS: BP 120/66
[2021-11-08] MEDS ORDERED: TPN PER PHARMACY IV NR ×11 (20:00)
[2021-11-08 22:00] VITALS: BP 131/61
[2021-11-09] MEDS: PIPERACILLIN-TAZOB 3.375GM 100 ML IV SCH ×4 (00:13→18:00)
[2021-11-09] MEDS: D5W/SOD CHL 0.45% 1,000 ML IV SCH (03:09)
[2021-11-09 05:00] VITALS: BP 104/65
[2021-11-09 05:25] LABS: Basophils # (auto) 0.1 10 ^3/uL (0-0.2); Eosinophils # (auto) 0.4 10 ^3/uL (0-0.8); Hemoglobin 10.9 g/dL (13.5-17.5); Lymphocytes # (auto) 1.2 10 ^3/uL (0.4-5.4)
[2021-11-09 05:30] LABS: Basophils % (auto) 1.1 % (0.0-2.0); Eosinophils % (auto) 4.7 % (0.0-7.0); Hematocrit 34.1 % (41.0-53.0); Lymphocytes % (auto) 12.6 % (10.0-50.0); Mean Corpuscular Hemoglobin 25.3 pg (28.0-32.0); Monocytes # (auto) 0.7 10 ^3/uL (0-1.3); Monocytes % (auto) 7.4 % (0.0-12.0); Neutrophils # (auto) 6.9 10 ^3/uL (1.6-8.6); Neutrophils % (auto) 74.2 % (37.0-80.0); Red Blood Cells 4.31 10^6/uL (4.5-5.90); White Blood Cell 9.3 10^3/uL (4.4-10.8)
[2021-11-09 05:40] LABS: Red Cell Distribution Width 23.1 % (11.8-14.3)
[2021-11-09 05:44] LABS: Magnesium 2.4 mg/dL (1.6-2.6); Potassium 3.7 mmol/L (3.5-5.1)
[2021-11-09 05:50] LABS: Bilirubin, Total 0.2 mg/dL (0.2-1.0); Phosphorus 2.9 mg/dL (2.5-4.90); Total Protein 5.8 g/dL (6.4-8.2)
[2021-11-09] MEDS: MORPHINE SULFATE INJ 2 MG/ml SYRG IV PRN (06:46)
[2021-11-09] MEDS: InsuLIN REG 1unit/0.01ml Soln (100units/ml) SC SCH (06:47)
[2021-11-09] MEDS: ACCU-CHEK COMFORT CURVE STRIP VI SCH (06:47)
[2021-11-09 07:40] VITALS: BP 124/62
[2021-11-09 08:09] LABS: BUN/Creatinine Ratio 12.2
[2021-11-09 09:00] VITALS: BP 124/62
[2021-11-09] MEDS: FAMOTIDINE (10MG/ML) 2ML VL IV SCH (09:35)
[2021-11-09] MEDS: ASPirin 81 mg TAB PO SCH (09:35)
[2021-11-09] MEDS: ENOXAPARIN SOD 40 MG/0.4 ML SYRINGE SC SCH (09:35)
[2021-11-09] MEDS: SODIUM CHLOR 0.9% PF (SALINE LOCK) 10ML VIAL/SYR IV SCH ×2 (09:40→22:05)
[2021-11-09] MEDS ORDERED: IOHEXOL 300 MG/ML 100ML BOTTLE IJ ONE (10:54)
[2021-11-09 13:00] VITALS: BP 137/63
[2021-11-09] MEDS: BACLOFEN 10 MG TAB PO SCH ×2 (15:09→22:09)
[2021-11-09 17:00] VITALS: BP 120/64
[2021-11-09] MEDS ORDERED: TPN PER PHARMACY IV NR ×11 (20:00)
[2021-11-09 21:43] VITALS: BP 104/50
[2021-11-09] MEDS: HYDROcodone-ACET 5/325MG TAB PO PRN (23:32)
[2021-11-10] MEDS: PIPERACILLIN-TAZOB 3.375GM 100 ML IV SCH ×4 (00:55→17:54)
[2021-11-10 04:43] VITALS: BP 117/64
[2021-11-10] MEDS: HYDROcodone-ACET 5/325MG TAB PO PRN (05:57)
[2021-11-10] MEDS: BACLOFEN 10 MG TAB PO SCH ×3 (05:57→21:21)
[2021-11-10 08:18] VITALS: BP 108/69
[2021-11-10] MEDS: FAMOTIDINE (10MG/ML) 2ML VL IV SCH (09:31)
[2021-11-10] MEDS: ENOXAPARIN SOD 40 MG/0.4 ML SYRINGE SC SCH (09:32)
[2021-11-10] MEDS: SODIUM CHLOR 0.9% PF (SALINE LOCK) 10ML VIAL/SYR IV SCH ×2 (09:32→21:20)
[2021-11-10] MEDS: ASPirin 81 mg TAB PO SCH (09:32)
[2021-11-10 11:56] VITALS: BP 122/46
[2021-11-10 17:06] VITALS: BP 121/73
[2021-11-10] MEDS: PHENAZOPYRIDINE HCL 100 MG TAB PO SCH (17:36)
[2021-11-10 22:00] VITALS: BP 102/69
[2021-11-11] MEDS: PIPERACILLIN-TAZOB 3.375GM 100 ML IV SCH ×4 (00:42→18:46)
[2021-11-11] MEDS: BACLOFEN 10 MG TAB PO SCH (06:41)
[2021-11-11 08:00] VITALS: BP 98/75
[2021-11-11] MEDS: PHENAZOPYRIDINE HCL 100 MG TAB PO SCH ×3 (08:36→18:00)
[2021-11-11] MEDS: ENOXAPARIN SOD 40 MG/0.4 ML SYRINGE SC SCH (10:00)
[2021-11-11] MEDS: FAMOTIDINE (10MG/ML) 2ML VL IV SCH (10:00)
[2021-11-11] MEDS: SODIUM CHLOR 0.9% PF (SALINE LOCK) 10ML VIAL/SYR IV SCH ×2 (10:00→22:00)
[2021-11-11] MEDS: ASPirin 81 mg TAB PO SCH (10:00)
[2021-11-11 16:00] VITALS: BP 127/79
[2021-11-11] MEDS: MORPHINE SULFATE INJ 2 MG/ml SYRG IV PRN ×2 (18:01→21:44)
[2021-11-11 22:00] VITALS: BP 139/78
[2021-11-12] MEDS: PIPERACILLIN-TAZOB 3.375GM 100 ML IV SCH ×3 (01:38→13:08)
[2021-11-12] MEDS: MORPHINE SULFATE INJ 2 MG/ml SYRG IV PRN (04:15)
[2021-11-12 05:00] VITALS: BP 119/61
[2021-11-12 06:43] LABS: Basophils # (auto) 0.1 10 ^3/uL (0-0.2); Eosinophils # (auto) 0.2 10 ^3/uL (0-0.8); Hematocrit 35.3 % (41.0-53.0); Lymphocytes # (auto) 1.3 10 ^3/uL (0.4-5.4)
[2021-11-12 06:45] LABS: Basophils % (auto) 1.2 % (0.0-2.0); Eosinophils % (auto) 2.7 % (0.0-7.0); Hemoglobin 11.2 g/dL (13.5-17.5); Lymphocytes % (auto) 17.6 % (10.0-50.0); Mean Corpuscular Hemoglobin 25.5 pg (28.0-32.0); Mean Corpuscular Hgb Conc. 31.8 g/dL (32.0-36.0); Mean Corpuscular Volume 80.1 fL (80.0-100.0); Monocytes # (auto) 0.5 10 ^3/uL (0-1.3); Monocytes % (auto) 7.2 % (0.0-12.0); Neutrophils # (auto) 5.2 10 ^3/uL (1.6-8.6); Neutrophils % (auto) 71.3 % (37.0-80.0); Nucleated Red Blood Cells % 0.1 %; Red Blood Cells 4.41 10^6/uL (4.5-5.90); White Blood Cell 7.3 10^3/uL (4.4-10.8)
[2021-11-12 06:57] LABS: Red Cell Distribution Width 22.6 % (11.8-14.3)
[2021-11-12 07:00] LABS: Calcium 8.7 mg/dL (8.5-10.1); INR 1.05 (0.9-1.15); Partial Thromboplastin Time 27.1 sec (24.6-33.4); Potassium 3.9 mmol/L (3.5-5.1)
[2021-11-12] MEDS: PHENAZOPYRIDINE HCL 100 MG TAB PO SCH ×2 (08:00→13:08)
[2021-11-12 09:00] VITALS: BP 120/62
[2021-11-12] MEDS ORDERED: ASPI-325 PO (09:00)
[2021-11-12] MEDS: FAMOTIDINE (10MG/ML) 2ML VL IV SCH (09:07)
[2021-11-12] MEDS: ASPirin 81 mg TAB PO SCH (09:07)
[2021-11-12] MEDS ORDERED: BACLOFEN 10 MG TAB PO SCH (10:00)
[2021-11-12] MEDS: SODIUM CHLOR 0.9% PF (SALINE LOCK) 10ML VIAL/SYR IV SCH (10:01)
[2021-11-12] MEDS: ENOXAPARIN SOD 40 MG/0.4 ML SYRINGE SC SCH (10:01)
[2021-11-12 13:00] VITALS: BP 119/77
[2021-11-12 17:26] VITALS: BP 157/91
[2021-11-16] MEDS ORDERED: ONDA-144 PO (21:27)
[2021-11-16] MEDS ORDERED: [UNRECOGNIZED DRUG - CODE] IV (21:27)
== END 2021-11-12 18:30 | disposition home health service (06) | DRG 391 ==
LOC: ER 21:05 → OVERFLOW 11-01 10:44 → EAST 11-01 14:42
PROVIDERS: ADMIT Hospitalist; ATTEND Hospitalist
PROC: 05H933Z Insertion of Infusion Device into Right Brachial Vein, Percutaneous Approach (ICD-10-PCS; principal; 2021-11-05)
PROC: B54MZZA Ultrasonography of Right Upper Extremity Veins, Guidance (ICD-10-PCS; 2021-11-05)
DX: K57.20 Diverticulitis of large intestine with perforation and abscess without bleeding (principal); R65.11 Systemic inflammatory response syndrome (SIRS) of non-infectious origin with acute organ dysfunction; I82.A11 Acute embolism and thrombosis of right axillary vein; N17.9 Acute kidney failure, unspecified; E44.1 Mild protein-calorie malnutrition; K52.9 Noninfective gastroenteritis and colitis, unspecified; R06.6 Hiccough; I48.91 Unspecified atrial fibrillation; D72.829 Elevated white blood cell count, unspecified; Z20.822 Contact with and (suspected) exposure to COVID-19; D64.9 Anemia, unspecified; Z83.3 Family history of diabetes mellitus; Z82.5 Family history of asthma and other chronic lower respiratory diseases
CPT/HCPCS: 36415; 36569; 71045; 71260; 74021; 74177; 80048; 80053; 80069; 81001; 82962; 83036; 83690; 83735; 83880; 84100; 84478; 84484; 85007; 85025; 85027; 85610; 85730; 86141; 86850; 86900; 86901; 93005; 93971; 96365; 96366; 96375; 96376; 97110; 97116; 97163; 97530; G0378; J0696; J1815; J2001; J2405; J2543; J3480; J3490; J7060; J7131